=== PATIENT | female | born 1990 | race American Indian/Alaskan Native ===

== ENCOUNTER 2020-04-28 20:47 | Emergency (ER) | payer MEDICAID, OTHER ==
[2020-04-28 21:15] VITALS: BP 99/57; PULSE 68
--- NOTE | 2020-04-28 21:55 | EDM.PDOC ---
ED HPI GENERAL MEDICAL PROBLEM - General Chief Complaint: General Stated Complaint: TOOTHACHE LOWER LEFT Time Seen by Provider: 04/28/20 21:40 Source of Information: Reports: Patient, Old Records, RN History Limitations: Reports: No Limitations - History of Present Illness INITIAL COMMENTS - FREE TEXT/NARRATIVE: 29 yo female here with dental pain. Sx's worse lately. No fever or facial swelling. Goes to [facility] for her dental, but is not able to get in due to back up of patients. Onset: Gradual Duration: Chronic, Getting Worse, Waxing/Waning Location: Reports: Face (L mandible) Quality: Reports: Ache Severity: Severe (at times) Improves with: Reports: Medication Worsens with: Reports: Other (cold exposure) Context: Reports: Other (See HPI) Associated Symptoms: Reports: No Other Symptoms Treatments SHOT BAGGER: Reports: Other (see below) (none) Tooth/Teeth Pain Score (Numeric/FACES): 8 - Related Data Allergies Allergy/AdvReac Type Severity Reaction Status Date / Time Penicillins Allergy Unknown Rash Verified 04/28/20 21:29 azithromycin [From Zithromax] Allergy Rash Verified 04/28/20 21:29 Home Meds: Home Meds NK [No Known Home Meds] 03/31/13 [History] Past Medical History HEENT History: Reports: Impaired Vision [employer]INE [employer]ATOR History: Reports: Endocrine/Metabolic History: Reports: Obesity/BMI 30+ - Infectious Disease History Infectious Disease History: Reports: Chicken Pox - Past Surgical History Head Surgeries/Procedures: Reports: None HEENT Surgical History: Reports: None Social & Family History - Tobacco Use Tobacco Use Status *Q: Current Every Day Tobacco User Years of Tobacco use: 10 Packs/Tins Daily: 1 Used Tobacco, but Quit: No Second Hand Smoke Exposure: Yes - Caffeine Use Caffeine Use: Reports: Coffee, Energy Drinks, Soda, Tea - Recreational Drug Use Recreational Drug Use: No ED ROS GENERAL - Review of Systems Review Of Systems: See Below Constitutional: Reports: No Symptoms HEENT: Reports: Dental Pain Respiratory: Reports: No Symptoms GI/Abdominal: Reports: No Symptoms Skin: Reports: No Symptoms Neurological: Reports: No Symptoms ED EXAM, GENERAL - Physical Exam Exam: See Below Exam Limited By: No Limitations General Appearance: Alert, WD/WN, No Apparent Distress Eye Exam: Bilateral Eye: Normal Inspection Ears: Normal External Exam, Normal Canal, Hearing Grossly Normal, Normal TMs Ear Exam: Bilateral Ear: Auricle Normal, Canal Normal, TM normal Nose: Normal Inspection, No Blood Throat/Mouth: Normal Inspection, Normal Lips, Normal Oropharynx, Normal Voice, No Airway Compromise. No: Normal Teeth (marked decay at gumline of the molar and premolars associated with the L mandible. ) Head: Atraumatic, Normocephalic. No: Facial Swelling Neck: Normal Inspection Respiratory/Chest: No Respiratory Distress, Lungs Clear, Normal Breath Sounds, No Accessory Muscle Use Cardiovascular: Regular Rate, Rhythm, No Edema Neurological: Alert, Oriented, CN II-XII Intact, Normal Cognition, No Motor/Sensory Deficits Psychiatric: Normal Affect, Normal Mood Skin Exam: Warm, Dry, Intact, Normal Color, No Rash Course - Vital Signs Last Recorded V/S: Last Vital Signs Temp 35.7 C L 04/28/20 21:31 Pulse 68 04/28/20 21:31 Resp 14 04/28/20 21:31 BP 99/57 L 04/28/20 21: Pulse Ox 98 04/28/20 21:31 Departure - Departure Time of Disposition: 21:55 Disposition: Home, Self-Care 01 Condition: Fair Clinical Impression: Pain, dental - Discharge Information *PRESCRIPTION DRUG MONITORING PROGRAM REVIEWED*: No *COPY OF PRESCRIPTION DRUG MONITORING REPORT IN PATIENT RAMESH: No Referrals: PCP,None [Primary Care Provider] - Additional Instructions: Take ibuprofen 600 mg every 6 hrs with food for pain relief. Add acetaminophen OR [facility] for added relief. Take Penicillin every 6 hrs to control infection. See a dentist [facility]ART[facility] for final treatment of this problem. Consider Orajel topically for pain relief. Sepsis Event Note (ED) - Evaluation Sepsis Screening Result: No Definite Risk - Focused Exam Vital Signs: Vital Signs Temp Pulse Resp BP Pulse Ox 04/28/20 21:31 35.7 C L 68 14 99/57 L 98 04/28/20 21:14 35.7 C L 68 14 99/57 L 98
== END 2020-04-28 22:12 | disposition home or self-care (01) ==
LOC: JP.ED 20:47
DX: K02.9 Dental caries, unspecified (principal); F17.210 Nicotine dependence, cigarettes, uncomplicated; E66.9 Obesity, unspecified; Z68.29 Body mass index [BMI] 29.0-29.9, adult; Z88.1 Allergy status to other antibiotic agents; Z88.0 Allergy status to penicillin
CPT/HCPCS: 99282

== ENCOUNTER 2021-11-09 12:33 | Emergency (ER) | payer MEDICAID ==
[2021-11-09 12:50] VITALS: BP 106/58; PULSE 64
[2021-11-09] MEDS ORDERED: Diphtheria,Pertussis(Acell),Tetanus Vaccine 0.5 ML Syringe IM ONE (13:03)
== END 2021-11-09 14:08 | disposition home or self-care (01) ==
LOC: JP.ED 12:33
DX: S91.331A Puncture wound without foreign body, right foot, initial encounter (principal); L03.115 Cellulitis of right lower limb; Z23 Encounter for immunization; E66.9 Obesity, unspecified; Z68.28 Body mass index [BMI] 28.0-28.9, adult; Z72.0 Tobacco use; Z88.0 Allergy status to penicillin; Z88.1 Allergy status to other antibiotic agents; W45.0XXA Nail entering through skin, initial encounter
CPT/HCPCS: 36415; 73630-RT; 85025; 86140; 90471; 90715; 99283; 99283-25

== ENCOUNTER 2021-12-21 21:23 | Emergency (ER) | payer MEDICAID ==
[2021-12-21 23:21] VITALS: BP 116/68; PULSE 81
== END 2021-12-22 00:11 | disposition home or self-care (01) ==
LOC: JP.ED 21:23
DX: K02.9 Dental caries, unspecified (principal); K00.7 Teething syndrome; F17.210 Nicotine dependence, cigarettes, uncomplicated; E66.9 Obesity, unspecified; Z68.29 Body mass index [BMI] 29.0-29.9, adult; Z88.0 Allergy status to penicillin; Z88.1 Allergy status to other antibiotic agents
CPT/HCPCS: 99282; 99283

== ENCOUNTER 2022-12-11 21:13 | Emergency (ER) | payer MEDICAID ==
[2022-12-11 21:54] VITALS: BP 112/63; PULSE 70
== END 2022-12-11 22:50 | disposition home or self-care (01) ==
LOC: JP.ED 21:13
DX: K04.7 Periapical abscess without sinus (principal); Z88.0 Allergy status to penicillin; Z88.1 Allergy status to other antibiotic agents; E66.9 Obesity, unspecified; Z68.26 Body mass index [BMI] 26.0-26.9, adult
CPT/HCPCS: 99282

== ENCOUNTER 2024-06-17 17:38 | Emergency (ER) | payer MEDICAID ==
[2024-06-17 17:47] VITALS: BP 139/74; PULSE 93
[2024-06-17] MEDS: oxyCODONE 5 MG Tab PO ONE (19:07)
[2024-06-17] MEDS: Bupivacaine 0.25% 10 ML SDV INJECT ONE (19:14)
== END 2024-06-17 19:42 | disposition home or self-care (01) ==
LOC: JP.ED 17:38
DX: K04.7 Periapical abscess without sinus (principal); E66.9 Obesity, unspecified; Z79.899 Other long term (current) drug therapy; Z88.0 Allergy status to penicillin; Z88.1 Allergy status to other antibiotic agents
CPT/HCPCS: 41800; 99282; A9270; J3490